=== PATIENT | male | born 1990 | race American Indian/Alaskan Native ===

== ENCOUNTER 2018-07-06 02:44 | Emergency (ER) | payer OTHER ==
[~2018-07-06] VITALS: Ht 182.9 cm; Wt 86.2 kg
[~2018-07-06 02:44] MED LIST: BACTRIM DS TAB1 EACH PO; IBUPROFEN200 MG PO; KEFLEX500 MG PO; NORCO 5-325 TA1 EACH PO; TYLENOL325 MG PO
[2018-07-06] MEDS ORDERED: NORCO 5-325 TA1 EACH PO (03:18)
== END 2018-07-06 03:50 | disposition home or self-care (01) ==
LOC: ED 02:44
DX: S91.114A Laceration without foreign body of right lesser toe(s) without damage to nail, initial encounter (principal); S90.31XA Contusion of right foot, initial encounter; F17.200 Nicotine dependence, unspecified, uncomplicated; Z88.0 Allergy status to penicillin; Z23 Encounter for immunization; X58.XXXA Exposure to other specified factors, initial encounter
CPT/HCPCS: 73630; 90471; 90715; 96372; 99283; J2270; J3410

== ENCOUNTER 2018-07-12 16:24 | Emergency (ER) | payer OTHER ==
[~2018-07-12] VITALS: Ht 182.9 cm; Wt 86.2 kg
== END 2018-07-12 16:37 | disposition home or self-care (01) ==
LOC: ED 16:24
DX: M79.671 Pain in right foot (principal)